=== PATIENT | male | born 1950 | race Caucasian/White ===

== ENCOUNTER 2017-05-03 08:39 | Outpatient (CLI) | payer MEDICARE, OTHER ==
[~2017-05-03 08:39] MED LIST: AMBIEN 10MG TAB10 MG PO; AMIODARONE 200200 MG PO; COMPAZINE10 M1 PO; COREG 3.125M3.125 MG PO; DEXAMETHASONE4 MG PO; Isosorbide Mono60 MG PO; LASIX 40MG. TAB40 MG PO; LISINOPRIL 20MG20 MG PO; LORAZEPAM0.5 MG/TAB FT; MAGNESIUM250 M2 PO; MULTIVITAMIN1 SGL PO; NAPROSYN500 M1 PO; NEURONTIN 300M300 MG PO; NEXIUM40 MG PO; NITROGLYCERIN0.4 MG SL; PLAVIX 75MG TAB75 MG PO; PRAVACHOL 40MG40 MG PO; WARFARIN 3MG TAB3 MG PO; XANAX 0.5MG TA0.5 MG PO; ZOFRAN 8MG TABLE8 MG PO
== END 2017-05-03 15:10 ==
LOC: ACC 08:39
DX: I48.91 Unspecified atrial fibrillation (principal); Z79.01 Long term (current) use of anticoagulants; Z51.81 Encounter for therapeutic drug level monitoring
CPT/HCPCS: G0463

== ENCOUNTER → 2017-05-14 | Outpatient (CLI) | payer MEDICARE, OTHER ==
[2017-05-14 12:24] LABS: BUN 17 mg/dL (7-18)
[2017-05-14 12:32] LABS: GFR (ESTIMATED) 51 ML/MIN (>60)
== END ==
LOC: LAB 09:44
PROVIDERS: Internal Medicine
DX: E83.42 Hypomagnesemia (principal); R19.7 Diarrhea, unspecified

== ENCOUNTER → 2017-06-03 | Outpatient (CLI) | payer MEDICARE, OTHER ==
[2017-06-03 15:46] LABS: BUN 14 mg/dL (7-18)
[2017-06-03 15:47] LABS: GFR (ESTIMATED) 55 ML/MIN (>60)
== END ==
LOC: LAB 12:09
PROVIDERS: Internal Medicine
DX: E83.42 Hypomagnesemia (principal); I10 Essential (primary) hypertension

== ENCOUNTER → 2017-06-10 | Outpatient (CLI) | payer MEDICARE, OTHER ==
[2017-06-10 15:35] LABS: BUN 14 mg/dL (7-18)
[2017-06-10 15:36] LABS: GFR (ESTIMATED) 55 ML/MIN (>60)
== END ==
LOC: LAB 10:22
PROVIDERS: Internal Medicine
DX: E83.42 Hypomagnesemia (principal)

== ENCOUNTER → 2017-06-13 | Outpatient (CLI) | payer MEDICARE, OTHER ==
[2017-06-13 12:13] LABS: BUN 12 mg/dL (7-18)
[2017-06-13 12:45] LABS: GFR (ESTIMATED) 60 ML/MIN (>60)
== END ==
LOC: LAB 11:02
PROVIDERS: Internal Medicine
DX: E83.42 Hypomagnesemia (principal)

== ENCOUNTER → 2017-06-17 | Outpatient (CLI) | payer MEDICARE, OTHER ==
[2017-06-17 11:38] LABS: BUN 19 mg/dL (7-18)
[2017-06-17 11:42] LABS: GFR (ESTIMATED) 60 ML/MIN (>60)
== END ==
LOC: LAB 10:03
PROVIDERS: Internal Medicine
DX: E83.42 Hypomagnesemia (principal)

== ENCOUNTER → 2017-06-21 | Outpatient (CLI) | payer MEDICARE, OTHER ==
[2017-06-21 16:58] LABS: BUN 21 mg/dL (7-18)
[2017-06-21 17:01] LABS: GFR (ESTIMATED) 55 ML/MIN (>60)
== END ==
LOC: LAB 08:47
PROVIDERS: Internal Medicine
DX: E83.42 Hypomagnesemia (principal)

== ENCOUNTER → 2017-06-28 | Outpatient (CLI) | payer MEDICARE, OTHER ==
[2017-06-28 14:27] LABS: BUN 22 mg/dL (7-18)
[2017-06-28 14:39] LABS: GFR (ESTIMATED) 51 ML/MIN (>60)
== END ==
LOC: ACC 08:27
PROVIDERS: Internal Medicine
DX: E83.42 Hypomagnesemia (principal); I48.91 Unspecified atrial fibrillation; Z79.01 Long term (current) use of anticoagulants; Z51.81 Encounter for therapeutic drug level monitoring

== ENCOUNTER → 2017-07-15 | Outpatient (CLI) | payer MEDICARE, OTHER ==
[2017-07-15 12:08] LABS: BUN 15 mg/dL (7-18)
[2017-07-15 12:18] LABS: GFR (ESTIMATED) 60 ML/MIN (>60)
== END ==
LOC: LAB 10:55
PROVIDERS: Internal Medicine
DX: E83.42 Hypomagnesemia (principal)

== ENCOUNTER → 2017-07-24 | Outpatient (CLI) | payer MEDICARE, OTHER ==
[2017-07-24 15:24] LABS: BUN 26 mg/dL (7-18); GFR (ESTIMATED) 47 ML/MIN (>60)
== END ==
LOC: LAB 12:30
PROVIDERS: Internal Medicine
DX: E83.42 Hypomagnesemia (principal)